=== PATIENT | male | born 1990 | race Caucasian/White ===

== ENCOUNTER 2020-08-12 10:59 | Inpatient (IN) | payer MEDICAID ==
[~2020-08-12] VITALS: Ht 180.3 cm; Wt 109.8 kg
[2020-08-12] MEDS ORDERED: HALOPERIDOL 5 MG TABLET PO PRN (11:15)
[2020-08-12 16:15] VITALS: BP 126/81
[2020-08-12] MEDS ORDERED: LORazepam 2 MG/ML VIAL ONE (16:55)
[2020-08-12] MEDS ORDERED: DiphenhydrAMINE HCL 50 MG/ML VIAL ONE (16:56)
[2020-08-12] MEDS ORDERED: HALOPERIDOL LACTATE 5 MG/ML VIAL ONE (16:56)
[2020-08-12] MEDS ORDERED: HALOPERIDOL LACTATE 5 MG/ML VIAL IM ONE (17:00)
[2020-08-12] MEDS ORDERED: LORazepam 2 MG/ML VIAL IM ONE (17:00)
[2020-08-12] MEDS ORDERED: DiphenhydrAMINE HCL 50 MG/ML VIAL IM ONE (17:00)
[2020-08-13 06:03] VITALS: BP 128/80
[2020-08-13 07:32] LABS: HEMOGLOBIN A1C 5.3 % (3.8-5.6)
[2020-08-13] MEDS ORDERED: PETROLATUM,WHITE 28 GM JELLY TP PRN (07:45)
[2020-08-13] MEDS ORDERED: ACETAMINOPHEN 325 MG TABLET PO PRN (07:45)
[2020-08-13] MEDS ORDERED: ONDANSETRON HCL 4 MG TABLET PO PRN (07:45)
[2020-08-13] MEDS ORDERED: GuaiFENesin/D-METHORPHAN [SUGAR-FREE] 200-20MG/10 ML SYRUP UDCUP PO PRN (07:45)
[2020-08-13] MEDS ORDERED: MAGNESIUM HYDROXIDE SUSPENSION 30 ML UDCUP PO PRN (07:45)
[2020-08-13] MEDS ORDERED: DOCUSATE SODIUM 100 MG CAPSULE PO PRN (07:45)
[2020-08-13] MEDS ORDERED: NICOTINE 14 MG/24 HOUR PATCH TD PRN (07:45)
[2020-08-13] MEDS ORDERED: CloNIDine HCL 0.1 MG TABLET PO PRN (07:45)
[2020-08-13] MEDS ORDERED: ALBUTEROL SULFATE HFA 90 MCG/PUFF 8 GM INHALER IH PRN (07:45)
[2020-08-13] MEDS ORDERED: LOPERAMIDE HCL 2 MG CAPSULE PO PRN (07:45)
[2020-08-13 07:46] LABS: BASOPHILS % (AUTO) 0.3 % (0.0-2.0); EOSINOPHILS % (AUTO) 0.6 % (1.0-6.0); HEMATOCRIT 50.2 % (41-53); HEMOGLOBIN 16.5 g/dL (13.5-17.5); LYMPHOCYTES # (AUTO) 3.2 K/uL (1.0-4.8); LYMPHOCYTES % (AUTO) 18.1 % (22.0-44.0); MEAN CORPUSCULAR HEMOGLOBIN 30.5 pg (26.0-34.0); MEAN CORPUSCULAR HGB CONC 32.9 G/dL (31.0-37.0); MEAN CORPUSCULAR VOLUME 93 fL (80-100); MONOCYTES # (AUTO) 0.5 K/uL (0.1-1.0); NEUTROPHILS # (AUTO) 13.8 K/uL (1.8-7.7); PLATELET COUNT (AUTO) 302 K/uL (150-450); RED BLOOD CELL COUNT(AUTO) 5.42 MIL/uL (4.50-5.90); RED CELL DISTRIBUTION WIDTH 12.9 % (11.5-14.5)
[2020-08-13 07:52] LABS: ALBUMIN 4.3 g/dL (3.4-5.0); BILIRUBIN,TOTAL 0.9 mg/dL (0.1-1.0); CALCIUM, TOTAL 9.2 mg/dL (8.8-10.5); CHOL/HDL RATIO 4.1 (4.2-7.3); CREATININE 1.39 mg/dL (0.60-1.30); POTASSIUM 3.9 mmol/L (3.5-5.1); TOTAL PROTEIN, SERUM 7.5 g/dL (6.4-8.2)
[2020-08-13 08:26] VITALS: BP 129/89
[2020-08-13 08:29] LABS: FREE T4 (FREE THYROXINE) 1.25 ng/dL (0.76-1.46); THYROID STIMULATING HORMONE 1.51 uIU/mL (0.36-3.74)
[2020-08-13] MEDS: OLANZapine 5 MG TABLET PO SCH ×2 (09:41→16:31)
[2020-08-13] MEDS ORDERED: OLANZapine 5 MG TABLET PO SCH (09:45)
[2020-08-13] MEDS: GABAPENTIN 300 MG CAPSULE PO SCH ×2 (09:45→16:31)
[2020-08-13 16:17] VITALS: BP 145/88
[2020-08-13] MEDS: LORazepam 2 MG TABLET PO PRN (16:31)
[2020-08-14 02:24] VITALS: BP 115/79
[2020-08-14] MEDS: ZOLPIDEM TARTRATE 10 MG TABLET PO PRN ×2 (02:36→21:05)
[2020-08-14] MEDS: GABAPENTIN 300 MG CAPSULE PO SCH ×2 (08:09→16:53)
[2020-08-14] MEDS: OLANZapine 5 MG TABLET PO SCH ×2 (08:09→16:53)
[2020-08-14 08:40] VITALS: BP 143/83
[2020-08-14] MEDS: IBUPROFEN 400 MG TABLET PO PRN (13:06)
[2020-08-14] MEDS: MAG HYDROX/AL HYDROX/SIMETH ES 30 ML SUSPENSION UDCUP PO PRN (14:08)
[2020-08-14] MEDS: LORazepam 2 MG TABLET PO PRN ×2 (16:53→21:05)
[2020-08-14 20:21] VITALS: BP 110/76
[2020-08-15 01:31] VITALS: BP 132/82
[2020-08-15] MEDS: IBUPROFEN 400 MG TABLET PO PRN (07:08)
[2020-08-15] MEDS: OLANZapine 5 MG TABLET PO SCH ×2 (08:51→16:21)
[2020-08-15] MEDS: GABAPENTIN 300 MG CAPSULE PO SCH ×2 (08:51→16:22)
[2020-08-15 08:57] VITALS: BP 130/87
[2020-08-15 16:20] VITALS: BP 125/71
[2020-08-15] MEDS: LORazepam 2 MG TABLET PO PRN (16:22)
[2020-08-15] MEDS: ZOLPIDEM TARTRATE 10 MG TABLET PO PRN (22:34)
[2020-08-16 01:38] VITALS: BP 111/75
[2020-08-16] MEDS: OLANZapine 5 MG TABLET PO SCH ×2 (08:24→16:06)
[2020-08-16] MEDS: GABAPENTIN 300 MG CAPSULE PO SCH ×2 (08:24→16:06)
[2020-08-16 08:36] VITALS: BP 103/60
[2020-08-16] MEDS: IBUPROFEN 400 MG TABLET PO PRN (08:36)
[2020-08-16 09:09] VITALS: BP 103/60
[2020-08-16] MEDS: LORazepam 2 MG TABLET PO PRN ×2 (12:47→19:24)
[2020-08-16 16:13] VITALS: BP 130/90
[2020-08-17] MEDS: ZOLPIDEM TARTRATE 10 MG TABLET PO PRN (01:39)
[2020-08-17 04:29] VITALS: BP 130/88
[2020-08-17] MEDS: IBUPROFEN 400 MG TABLET PO PRN (04:31)
[2020-08-17] MEDS: GABAPENTIN 300 MG CAPSULE PO SCH (08:33)
[2020-08-17] MEDS: OLANZapine 5 MG TABLET PO SCH (08:33)
[2020-08-17 08:53] VITALS: BP 131/88
[2020-08-17] MEDS: MAG HYDROX/AL HYDROX/SIMETH ES 30 ML SUSPENSION UDCUP PO PRN (09:45)
[2020-08-17] MEDS ORDERED: OLAN10TA3 PO (11:49)
[2020-08-17] MEDS ORDERED: GABA-1181 PO (11:49)
== END 2020-08-17 13:15 | disposition home or self-care (01) | DRG 751 ==
LOC: B3A 13:02
PROVIDERS: ADMIT Psychiatry & Neurology Child & Adolescent Psychiatry; ATTEND Psychiatry & Neurology Child & Adolescent Psychiatry
DX: F29 Unspecified psychosis not due to a substance or known physiological condition (principal); N17.9 Acute kidney failure, unspecified; D72.829 Elevated white blood cell count, unspecified; F10.10 Alcohol abuse, uncomplicated; Z56.0 Unemployment, unspecified
CPT/HCPCS: 80053; 80061; 83036; 84436; 84439; 84443; 85025; J1200; J1630; J2060